=== PATIENT | female | born 1975 | race Caucasian/White ===

== ENCOUNTER 2018-10-11 15:20 | Emergency (ER) | payer MEDICAID, OTHER ==
[2018-10-11] MEDS ORDERED: Bacitracin Oint 1 GM U/D Packet TOP ONE (15:38)
[2018-10-11] MEDS ORDERED: Diphtheria,Pertussis(Acell),Tetanus Vaccine 0.5 ML Syringe IM ONE (15:38)
--- NOTE | 2018-10-11 15:38 | EDM.PDOC ---
ED HPI GENERAL MEDICAL PROBLEM - General Chief Complaint: Laceration Stated Complaint: LACERATION Time Seen by Provider: 10/11/18 15:23 Source of Information: Reports: Patient History Limitations: Reports: No Limitations - History of Present Illness INITIAL COMMENTS - FREE TEXT/NARRATIVE: HISTORY AND PHYSICAL: History of present illness: Patient is a 43-year-old female who presents to the emergency room with complaints of a laceration to the pad of her left index finger. She states she was using a bug trimmer and had pulled back some trees when a corner of the nomi had grazed her finger. No other extremity involvement. Has no systemic complaints. Unsure of her last tetanus update. Review of systems: As per history of present illness and below otherwise all systems reviewed and negative. Past medical history: As per history of present illness and as reviewed below otherwise noncontributory. Surgical history: As per history of present illness and as reviewed below otherwise noncontributory. Social history: See social history for further information Family history: As per history of present illness and as reviewed below otherwise noncontributory. Physical exam: General: Well-developed and well-nourished 43-year-old female. Alert and oriented. Nontoxic appearing and in no acute distress. HEENT: Atraumatic, normocephalic, pupils equal and reactive bilaterally, negative for conjunctival pallor or scleral icterus, mucous membranes moist, TMs normal bilaterally, throat clear, neck supple, nontender, trachea midline. No drooling or trismus noted. No meningeal signs. No hot potato voice noted. Lungs: Clear to auscultation, breath sounds equal bilaterally, chest nontender. Heart: S1S2, regular rate and rhythm without overt murmur Abdomen: Soft, nondistended, nontender. Skin: 2 cm C-shaped laceration to the pad of the left distal index finger. This does not involve the nailbed. This is not circumferential. Otherwise skin is intact, warm, dry. No lesions or rashes noted. Extremities: See skin for details, appears tab no tendon involvement, moves all extremities per self without difficulty or deficits, Refill less than 3 seconds. Neurovascular unremarkable. Neuro: Awake, alert, oriented. Cranial nerves II through XII unremarkable. Cerebellum unremarkable. Motor and sensory unremarkable throughout. Exam nonfocal. Notes: 1% lidocaine was used to anesthetize the area. Usual customary procedures were followed for suture placement. 4-0 chromic, #4 interrupted sutures were placed. Patient tolerated well. Tetanus was updated. Nonstick dressing applied with education. Supportive care measures were reviewed and discussed. Voices understanding and is agreeable to plan of care. Denies any further questions or concerns at this time. Diagnostics: None Therapeutics: Tetanus, lidocaine, bacitracin nonstick dressing Prescription: None Impression: Laceration Plan: 1. Keep the area clean and dry. Continue to monitor for signs of infection. Sutures to be removed in 7-10 days (should dissolve by then). 2. Tylenol and/or ibuprofen as needed for pain management. 3. Please follow-up with your primary care provider in the next 1-2 days. Return to the ED as needed and as discussed. Definitive disposition and diagnosis as appropriate pending reevaluation and review of above. left 2nd finger Pain Score (Numeric/FACES): 2 - Related Data Allergies Allergy/AdvReac Type Severity Reaction Status Date / Time No Known Allergies Allergy Verified 10/11/18 15:33 Home Meds: Home Meds Levothyroxine [Synthroid] 100 mcg PO ACBREAKFAST 10/11/18 [History] Multivitamin [Multi-Day Vitamins] 1 each PO DAILY 10/11/18 [History] ED ROS GENERAL - Review of Systems Review Of Systems: ROS reveals no pertinent complaints other than HPI. ED EXAM, SKIN/RASH Exam: See Below (See dictation) ED SKIN PROCEDURES - Laceration/Wound Repair Left index finger Appearance: Subcutaneous, Linear, Clean Distal NVT: Neuro & Vascular Intact, No Tendon Injury Anesthetic Type: Local Local Anesthesia - Lidocaine (Xylocaine): 1% Plain Local Anesthetic Volume: 2cc Skin Prep: Chlorhexidine (Hibiciens) Saline Irrigation (cc's): 25 Exploration/Debridement/Repair: Wound Explored, No Foreign Material Found Closed with: Sutures Lac/Wound length In cm: 2 Suture Size: 4-0 (Chromic) # of Sutures: 4 Suture Type: Interrupted, Simple Drain Placement: No Sterile Dressing Applied: Provider Tetanus Status Addressed: Yes Complications: No Course - Vital Signs Last Recorded V/S: Last Vital Signs Temp 97.4 F 10/11/18 15:34 Pulse 75 10/11/18 15:34 Resp 18 10/11/18 15:34 BP 187/104 H 10/11/18 15:34 Pulse Ox 99 10/11/18 15:34 - Orders/Labs/Meds Orders: Active Orders 24 hr Category Date Time Status Vaccines to be Administered [RC] PER UNIT ROUTINE Care 10/11/18 15:38 Active Meds: Medications Discontinued Medications Generic Name Dose Route Start Last Admin Trade Name Db PRN Reason Stop Dose Admin Bacitracin 1 dose 10/11/18 15:38 10/11/18 16:26 Bacitracin Oint 1 Gm TOP 10/11/18 15:39 1 dose ONETIME ONE Administration Diphtheria/Tetanus/Acell Pertussis 0.5 ml 10/11/18 15:38 10/11/18 16:25 Adacel IM 10/11/18 15:39 0.5 ml .ONCE ONE Administration Lidocaine HCl 5 ml 10/11/18 15:47 10/11/18 16:26 Xylocaine-Mpf 1% INJECT 10/11/18 15:48 5 ml ONETIME ONE Administration Lidocaine HCl Confirm 10/11/18 15:48 10/11/18 16:33 Xylocaine-Mpf 1% Administered 10/11/18 15:49 Not Given Dose 5 ml .ROUTE .STK-MED ONE Departure - Departure Time of Disposition: 16:18 Disposition: Home, Self-Care 01 Clinical Impression: Laceration - Discharge Information Instructions: Laceration Care, Adult, [id number] Referrals: PCP,Unknown [Primary Care Provider] - Forms: ED Department Discharge Additional Instructions: The following information is given to patients seen in the emergency department who are being discharged to home. This information is to outline your options for follow-up care. We provide all patients seen in our emergency department with a follow-up referral. The need for follow-up, as well as the timing and circumstances, are variable depending upon the specifics of your emergency department visit. If you don't have a primary care physician on staff, we will provide you with a referral. We always advise you to contact your personal physician following an emergency department visit to inform them of the circumstance of the visit and for follow-up with them and/or the need for any referrals to a consulting specialist. The emergency department will also refer you to a specialist when appropriate. This referral assures that you have the opportunity for follow-up care with a specialist. All of these measure are taken in an effort to provide you with optimal care, which includes your follow-up. Under all circumstances we always encourage you to contact your private physician who remains a resource for coordinating your care. When calling for follow-up care, please make the office aware that this follow-up is from your recent emergency room visit. If for any reason you are refused follow-up, please contact the [facility] Emergency Department at and asked to speak to the emergency department charge nurse. [facility] [address] [place] [id number] [facility] [address] [place] [id number] 1. Keep the area clean and dry. Continue to monitor for signs of infection. Sutures to be removed in 7-10 days (should dissolve by then). 2. Tylenol and/or ibuprofen as needed for pain management. 3. Please follow-up with your primary care provider in the next 1-2 days. Return to the ED as needed and as discussed. - My Orders Last 24 Hours: My Active Orders 10/11/18 15:38 Vaccines to be Administered [RC] PER UNIT ROUTINE - Assessment/Plan Last 24 Hours: My Active Orders 10/11/18 15:38 Vaccines to be Administered [RC] PER UNIT ROUTINE
== END 2018-10-11 16:54 | disposition home or self-care (01) ==
LOC: MW.ED 15:20
DX: S61.211A Laceration without foreign body of left index finger without damage to nail, initial encounter (principal); Z23 Encounter for immunization; W29.3XXA Contact with powered garden and outdoor hand tools and machinery, initial encounter
CPT/HCPCS: 12001; 90471; 90715; 99282; J2001

== ENCOUNTER 2018-10-22 11:29 | Emergency (ER) | payer MEDICAID | END 2018-10-22 11:53 | disposition home or self-care (01) | LOC: MW.ED 11:29 | DX: Z53.21 Procedure and treatment not carried out due to patient leaving prior to being seen by health care provider (principal) ==